=== PATIENT | male | born 1985 | race Caucasian/White ===

== ENCOUNTER 2018-09-10 09:05 | Day surgery (SDC) | payer BC ==
[~2018-09-10] VITALS: Ht 195.6 cm; Wt 99.8 kg
--- NOTE | 2018-09-10 10:49 | NUR ---
09/10/18 1049 Noemi Levy 1031 PT ARRIVED IN PACU SLEEPY WITH NO C/O'S. ABD SOFT. 1040 SITTING UP IN BED SIPPING ON WATER. 1045 DR AT BEDSIDE TALKING TO PT.
--- NOTE | 2018-09-11 08:14 | OR ---
[facility] [address], [place] [address] Signed DATE OF OPERATION: 09/10/2018 SURGEON: Anjum Walsh MD PREOPERATIVE DIAGNOSIS: Rectal bleeding. POSTOPERATIVE DIAGNOSIS: Minimal to moderate internal and external hemorrhoids. PROCEDURE: Colonoscopy without biopsy. ESTIMATED BLOOD LOSS: None. 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 He is pretty healthy other than some scoliosis of his back. He has noticed blood at least twice if not three times on the surface of his stool. He said he has a lot of anxiety and he really worries about multiple issues. He got online and was reading extensively. He then went to his primary care provider. He realizes it more likely is hemorrhoids, but he was asked to see me for specifically for colonoscopy. We spent a significant amount of time in the office reviewing the information he found on the Internet. We also reviewed colonoscopy in detail. I gave him a pamphlet on colonoscopy, we looked at that page by page. We also reviewed the risks including, but not limited to gas bloating, crampy abdominal pain, bleeding, perforation, and missed diagnosis. He had expressed understanding and wished to proceed. He understands the need for IV conscious sedation. He also told me that in May 2018, and in July 2018, he did guaiac cards and it came back negative. PROCEDURE NOTE: Chalino was taken into our endoscopy suite and placed in the left lateral decubitus position. He was given IV sedation with 10 mg of Versed and 150 mcg of fentanyl. A digital rectal exam was performed and he does have some small to moderate external hemorrhoid tissue. It is a little irritated, but not terribly so. He has good sphincter tone. Prostate was unremarkable. The adult colonoscope was introduced and advanced all around into the cecum under direct visualization of camera. It took extra sedation and abdominal compression in order to advance the scope. Chalino is 6 feet 4 inches tall. He has a very long redundant colon. It took quite a while to remove the Electronically Signed By: ANJUM WALSH MD 09/11/18 0814 PATIENT NAME: CHALINO AVILEZ OPERATIVE REPORT DATE OF : 85 REPORT #: [id number] PHYSICIAN: ANJUM WALSH MD PCP: MURIEL AMADOR PA-C REPORT IS CONFIDENTIAL AND NOT TO BE RELEASED WITHOUT AUTHORIZATION [facility] [address] [place] [id number] Signed camera back and forth until we finally made our way through both the splenic and hepatic flexures and into the cecum itself. His prep was quite excellent. We could easily identify the shoshone-bannock's foot in the appendiceal orifice. We made several attempts to pass the scope into the terminal ileum without success. We had taken pictures throughout for photodocumentation. The scope was slowly withdrawn. We saw no pathology throughout his entire colon or rectum. Specifically, no diverticulosis and no polyps. No inflammatory changes. The scope was retroflexed in his rectum and this was unremarkable, except for some small to moderate standard internal hemorrhoid columns. After this, the gas was suctioned out and the colonoscope removed. Chalino tolerated the procedure quite well. RECOMMENDATIONS: I will have Chalino back in my office in 7 to 14 days to review these results in detail with him. Anjum Walsh MD ALB/MODL /[id number] cc: MD Muriel Shah PA-C Copies: ANJUM WALSH MD, CHLOE K PA-C ~ Electronically Signed By: ANJUM WALSH MD 09/11/18 0814 PATIENT NAME: CHALINO AVILEZ AB OPERATIVE REPORT DATE OF : 85 REPORT #: [id number] PHYSICIAN: ANJUM WALSH MD PCP: MURIEL AMADOR PA-C REPORT IS CONFIDENTIAL AND NOT TO BE RELEASED WITHOUT AUTHORIZATION
== END 2018-09-10 11:05 | disposition home or self-care (01) ==
LOC: OPS 09:05 → DS 09:05 → OPS 10:30
PROVIDERS: Colon & Rectal Surgery
PROC: 0DJD8ZZ Inspection of Lower Intestinal Tract, Via Natural or Artificial Opening Endoscopic (ICD-10-PCS; principal; 2018-09-10 10:30)
DX: K64.8 Other hemorrhoids (principal); K64.4 Residual hemorrhoidal skin tags
CPT/HCPCS: 99153; G0500; J2250; J3010

== ENCOUNTER 2021-10-13 23:11 | Emergency (ER) | payer BC ==
[~2021-10-13] VITALS: Ht 200.7 cm; Wt 96.4 kg
== END 2021-10-14 00:40 | disposition home or self-care (01) ==
LOC: ED 23:11
DX: R25.1 Tremor, unspecified (principal); T40.715A Adverse effect of cannabis, initial encounter
CPT/HCPCS: 36415; 80048; 83735; 85025; 85060; 96374; 99283-25; J2060; J7030